=== PATIENT | male | born 1980 | race Caucasian/White ===

== ENCOUNTER 2020-02-04 12:58 | Emergency (ER) | payer BC ==
[2020-02-04] MEDS ORDERED: LORazepam 0.5 MG Tab PO ONE (13:30)
--- NOTE | 2020-02-04 13:40 | EDM.PDOC ---
ED HPI GENERAL MEDICAL PROBLEM - General Chief Complaint: Neurological Problem Stated Complaint: L ARM NUMBNESS/LIGHTHEADED Time Seen by Provider: 02/04/20 13:20 Source of Information: Reports: Patient, RN Notes Reviewed History Limitations: Reports: No Limitations - History of Present Illness INITIAL COMMENTS - FREE TEXT/NARRATIVE: Patient is a 39-year-old male who presents to the ED for the evaluation of his left arm numbness and tingling. For the last few days, he has had increased stress at work, due to his slowing down. He notes a history of anxiety, which he used to take Xanax for. He has not been on anything for medication in a long time. He does note that he has been trialed on SSRIs and mood stabilizers, but none of these seem to work well for him. His primary care provider is Dr. Spence. He states that he developed some lightheadedness today, after he started thinking about the left arm numbness and tingling. He notes that he did work out pretty hard yesterday, for the first time in a while and did some chest and arm workouts, and was not sure if maybe he tweaked any muscles in that area causing these issues. He does not note a history of early cardiac in his family states that his grandfather was 85 when he had a quadruple bypass, and was a smoker all his life. Patient notes that he has not really been eating or drinking well either for the last few days, as he had a pretty wicked case of heartburn a few days ago because he ate some jalapenos that he was unaware of that were in his food. He does seem quite anxious, O2 sats are 100% on room air. He is very agitated, and nervous to be in the ER. He denies any chest pain or shortness of breath, nausea/vomiting/diarrhea, has not had any fevers or chills. - Related Data Allergies Allergy/AdvReac Type Severity Reaction Status Date / Time No Known Allergies Allergy Verified 02/04/20 13:16 Home Meds: Home Meds LORazepam [Ativan] 1 mg PO TID PRN #12 tab 02/04/20 [Rx] Past Medical History Cardiovascular History: Reports: High Cholesterol Psychiatric History: Reports: Anxiety Endocrine/Metabolic History: Reports: Obesity/BMI 30+ - Past Surgical History Male Surgical History: Reports: Vasectomy Social & Family History - Tobacco Use Smoking Status *Q: Never Smoker - Caffeine Use Caffeine Use: Reports: Coffee - Recreational Drug Use Recreational Drug Use: No ED ROS GENERAL - Review of Systems Review Of Systems: Comprehensive ROS is negative, except as noted in HPI. ED EXAM, GENERAL - Physical Exam Exam: See Below Exam Limited By: No Limitations General Appearance: Alert, WD/WN, No Apparent Distress, Anxious (visibly anxious in room) Eye Exam: Bilateral Eye: EOMI, Normal Inspection, PERRL Respiratory/Chest: No Respiratory Distress, Lungs Clear, Normal Breath Sounds, No Accessory Muscle Use, Chest Non-Tender Cardiovascular: Normal Peripheral Pulses, Regular Rate, Rhythm, No Murmur Peripheral Pulses: 2+: Radial (L), Radial (R) Extremities: Normal Inspection, Normal Capillary Refill Neurological: Alert, Oriented, Normal Cognition, No Motor/Sensory Deficits Psychiatric: Normal Affect, Normal Mood, Anxious (pt is very nervous about being in ER) Skin Exam: Warm, Dry, Intact, Normal Color Course - Vital Signs Last Recorded V/S: Last Vital Signs Temp 97.2 F 02/04/20 13:12 Pulse 83 02/04/20 13:12 Resp 18 02/04/20 13:12 BP 161/115 H 02/04/20 13:12 Pulse Ox 100 02/04/20 13:12 - Orders/Labs/Meds Labs: Laboratory Tests 02/04/20 Range/Units 13:40 Sodium 133 L (136-145) mEq/L Potassium 3.3 L (3.5-5.1) mEq/L Chloride 92 L (98-107) mEq/L Carbon Dioxide 26 (21-32) mEq/L Anion Gap 18.3 H (5-15) BUN 7 (7-18) mg/dL Creatinine 1.4 H (0.7-1.3) mg/dL Est Cr Clr Drug Dosing 74.59 mL/min Estimated GFR (MDRD) 57 (>60) mL/min BUN/Creatinine Ratio 5.0 L (14-18) Glucose 102 (74-106) mg/dL Calcium 9.9 (8.5-10.1) mg/dL Magnesium 1.9 (1.8-2.4) mg/dl Total Bilirubin 0.9 (0.2-1.0) mg/dL AST 86 H (15-37) U/L ALT 112 H (16-63) U/L Alkaline Phosphatase 85 (46-116) U/L Total Protein 8.6 H (6.4-8.2) g/dl Albumin 4.3 (3.4-5.0) g/dl Globulin 4.3 gm/dL Albumin/Globulin Ratio 1.0 (1-2) Meds: Medications Discontinued Medications Generic Name Dose Route Start Last Admin Trade Name Faisal PRN Reason Stop Dose Admin Lorazepam 0.5 mg 02/04/20 13:30 02/04/20 13:35 Ativan PO 02/04/20 13:31 0.5 mg ONETIME ONE Administration - Re-Assessments/Exams Free Text/Narrative Re-Assessment/Exam: 02/04/20 13:42 Patient presents to the ED for the evaluation of his left arm numbness and tingling with associated lightheadedness. I do highly suspect anxiety in nature. He will be given 0.5 mg Ativan for management, and to have labs taken to evaluate for electrolyte abnormalities. He was not keen on taking medications, but I told him due to his anxiety this should work well for him. He did finally agree to taking a small dose. Departure - Departure Time of Disposition: 14:21 Disposition: Home, Self-Care 01 Condition: Good Clinical Impression: Panic attack due to exceptional stress, Dehydration - Discharge Information *PRESCRIPTION DRUG MONITORING PROGRAM REVIEWED*: Yes *COPY OF PRESCRIPTION DRUG MONITORING REPORT IN PATIENT NICOLETTE: No Prescriptions: LORazepam [Ativan] 1 mg PO TID PRN #12 tab PRN Reason: Anxiety Instructions: Dehydration, Adult, [id number], Panic Attack, [id number] Referrals: Kathryn Hamilton MD [Primary Care Provider] - Forms: ED Department Discharge Additional Instructions: You were evaluated in the ER today for your left arm numbness and tingling. This may likely be due to the strenuous workout you did yesterday, in combination with increased stress and anxiety you are having at home. The numbness and lightheadedness can be accounted for your panic attack you had in the ER. You were given 0.5 mg p.o. Ativan, this seemed to relieve most your symptoms fairly well. Your labs did show slight dehydration, which can be supplemented by oral fluid intake. Please continue to drink fluids like Gatorade/Powerade over the next day or 2 to resolve this. You were given a prescription of Ativan, 1 mg tablets, you may take 1/2 to 1 full tab 3 times a day as needed for further symptoms of anxiety. You will need to follow-up with your primary care provider, Dr. Spence for a refill of this medication if it is working well for you. Please return to the ED as needed if your symptoms should change or worsen. Sepsis Event Note (ED) - Evaluation Sepsis Screening Result: No Definite Risk - Focused Exam Vital Signs: Vital Signs Temp Pulse Resp BP Pulse Ox 02/04/20 13:12 97.2 F 83 18 161/115 H 100
== END 2020-02-04 14:37 | disposition home or self-care (01) ==
LOC: JD.ED 12:58
DX: F43.0 Acute stress reaction (principal); E86.0 Dehydration; E66.9 Obesity, unspecified; Z68.30 Body mass index [BMI] 30.0-30.9, adult
CPT/HCPCS: 36415; 80053; 83735; 99284; A9270; 99283

== ENCOUNTER 2021-08-10 13:30 | Emergency (ER) | payer BC ==
[2021-08-10] MEDS ORDERED: Ondansetron 4 MG Tab.DIS PO ONE (14:28)
[2021-08-10] MEDS ORDERED: LORazepam 1 MG Tab PO ONE (14:28)
== END 2021-08-10 15:50 | disposition home or self-care (01) ==
LOC: JD.ED 13:30
DX: F10.10 Alcohol abuse, uncomplicated (principal); E66.9 Obesity, unspecified; Z68.29 Body mass index [BMI] 29.0-29.9, adult; Y90.5 Blood alcohol level of 100-119 mg/100 ml
CPT/HCPCS: 36415; 80053; 80143; 80179; 80306; 80307; 84443; 85007; 85027; 93005; 99284; A9270; 93010; 99285

== ENCOUNTER 2023-03-09 05:02 | Emergency (ER) | payer BC, OTHER ==
[2023-03-09] MEDS ORDERED: LORazepam 1 MG Tab PO ONE ×2 (05:52→06:54)
[2023-03-09] MEDS ORDERED: Ondansetron 4 MG Tab.DIS PO ONE (06:50)
== END 2023-03-09 07:50 | disposition home or self-care (01) ==
LOC: JD.ED 05:02
DX: F41.9 Anxiety disorder, unspecified (principal); E66.9 Obesity, unspecified; Z68.31 Body mass index [BMI] 31.0-31.9, adult
CPT/HCPCS: 99283; A9270